=== PATIENT | female | born 1990 | race Caucasian/White ===

== ENCOUNTER 2016-10-31 08:07 | Emergency (ER) | payer MEDICAID ==
[2016-10-31] MEDS ORDERED: ONDANSETRON 4 MG VIAL ONE (10:09)
[2016-10-31] MEDS ORDERED: SODIUM CHLORIDE 0.9% 1,000 ML ONE (10:10)
[2016-10-31] MEDS ORDERED: ACETAMINOPHEN 325 MG TAB ONE (10:17)
== END 2016-10-31 11:28 | disposition home or self-care (01) ==
LOC: ER 08:07
DX: O20.0 Threatened abortion (principal); O99.320 Drug use complicating pregnancy, unspecified trimester; F15.10 Other stimulant abuse, uncomplicated; F11.10 Opioid abuse, uncomplicated; Z3A.00 Weeks of gestation of pregnancy not specified
CPT/HCPCS: 36415; 71010; 76815; 80053; 80307; 81003; 84702; 85025; 85610; 85730; 86901; 87491; 87591; 87800; 87804; 96361; 96374